=== PATIENT | female | born 1955 | race Caucasian/White ===

== ENCOUNTER 2022-05-23 01:37 | Inpatient (IN) | payer OTHER, MEDICAID ==
[2022-05-23] VITALS (18 sets, daily range): BP systolic 107–185; BP diastolic 70–95
[~2022-05-23] VITALS: Ht 167.6 cm; Wt 77.1 kg
[2022-05-23] MEDS: PIPERACILLIN/TAZOBACTAM 3.375 G in DEXTROSE 5% WATER 50 ML IV SCH ×2
[2022-05-23] MEDS ORDERED: FUROSEMIDE 100MG/10ML VIAL IVP ONE (01:45)
[2022-05-23] MEDS ORDERED: NITROGLYCERIN 0.4MG TABLET SL SL PRN (01:45)
[2022-05-23] MEDS ORDERED: ASPIRIN 81MG TABLET PO ONE (01:45)
[2022-05-23] MEDS ORDERED: CALCIUM GLUCONATE 1GM PREMIX 50 ML IV NR (02:00)
[2022-05-23] MEDS ORDERED: FUROSEMIDE 100MG/10ML VIAL IVP NR ×2 (02:00→07:30)
[2022-05-23] MEDS ORDERED: CALCIUM GLUCONATE 100MG/ML 10ML VIAL IV ONE (02:00)
[2022-05-23] MEDS ORDERED: ASPIRIN 81MG TABLET PO NR (02:00)
[2022-05-23 02:22] LABS: BASOPHILS % 0.4 % (0.0-2.0); EOSINOPHILS % 3.2 % (0.0-5.0); HEMATOCRIT. 33.4 % (36.0-48.0); HEMOGLOBIN. 10.7 g/dL (12.0-16.0); LYMPHOCYTES % 9.3 % (20.0-50.0); MEAN CORPUSCULAR HEMOGLOBIN 28.2 pg (28.0-32.0); MEAN CORPUSCULAR VOLUME 88.2 fL (81.0-99.0); MEAN PLATELET VOLUME 8.2 fl (7.4-10.4); MONOCYTES % 4.8 % (2.0-8.0); NEUTROPHILS % 82.3 % (40.0-76.0); PLATELET 299 x1000/uL (130-400); RED BLOOD CELL COUNT 3.78 mill/uL (4.2-5.4); RED CELL DISTRIBUTION WIDTH 13.6 % (11.6-14.6)
[2022-05-23 02:30] LABS: CHLORIDE 101 mEq/L (98-107)
[2022-05-23] MEDS ORDERED: HYDRALAZINE 20MG/ML VIAL IV PRN (06:45)
[2022-05-23] MEDS ORDERED: DEXTROSE 50% WATER 50ML SYRINGE IV PRN (06:45)
[2022-05-23] MEDS ORDERED: NALOXONE HCL 0.4MG/ML VIAL IV PRN (07:00)
[2022-05-23] MEDS: BLOOD SUGAR DIAGNOSTIC STRIP TEST SCH ×4 (07:30→20:53)
[2022-05-23] MEDS ORDERED: PIPERACILLIN/TAZOBACTAM 3.375 G in DEXTROSE 5% WATER 50 ML IV SCH (08:00)
[2022-05-23] MEDS ORDERED: VANCOMYCIN 1500MG in DEXTROSE 5% WATER 250ML IV NR (08:30)
[2022-05-23 08:57] LABS: BG BASE EXCESS -1.7 mmol/L (-2.0-2.0); BG DEOXYHEMOGLOBIN 2.5 % (0.0-5.0); BG FRACTION INSPIRED OXYGEN 40; BG HCO3 ACT 23.1 mmol/L (22.0-26.0); BG METHEMOGLOBIN 0.3 % (0.0-1.5); BG OXYGEN SATURATION 97.5 % (92.0-98.5); BG OXYHEMOGLOBIN 96.2 % (94.0-97.0); BG PCO2 39.1 mmHg (35.0-45.0); BG PH 7.389 (7.350-7.450); BG SAMPLE SITE RIGHT BRACHIAL; BG TOTAL HEMOGLOBIN 11.6 g/dL (12.0-18.0); BG VENT MODE NASAL CANNULA
[2022-05-23] MEDS: INSULIN LISPRO 100 UNITS/ML SUBCUT SCH ×4 (09:02→22:13)
[2022-05-23] MEDS: CLONIDINE 0.2MG TABLET PO SCH ×2 (09:03→16:23)
[2022-05-23] MEDS: PANTOPRAZOLE SODIUM 40 MG/VIAL IV SCH (09:03)
[2022-05-23] MEDS: HEPARIN 5000 UNITS/ML VIAL SUBCUT SCH ×2 (09:04→22:02)
[2022-05-23] MEDS: MORPHINE SULFATE 2 MG/ML CPJ (NOT FOR IM USE) IV PRN (11:18)
[2022-05-23 12:09] LABS: HEPATITIS B SURFACE ANTIGEN NEGATIVE
[2022-05-23] MEDS: DOCUSATE SODIUM 250MG CAPSULE PO SCH (17:18)
[2022-05-23] MEDS: ZOLPIDEM TARTRATE 5MG TABLET PO PRN ×2 (22:02→22:03)
[2022-05-24] VITALS (9 sets, daily range): BP systolic 118–141; BP diastolic 61–85
[2022-05-24 06:36] LABS: BASOPHILS % 0.5 % (0.0-2.0); EOSINOPHILS % 8.5 % (0.0-5.0); HEMATOCRIT. 28.3 % (36.0-48.0); HEMOGLOBIN. 9.4 g/dL (12.0-16.0); MEAN CORPUSCULAR HEMOGLOBIN 29.1 pg (28.0-32.0); MEAN PLATELET VOLUME 8.4 fl (7.4-10.4); MONOCYTES % 8.6 % (2.0-8.0); NEUTROPHILS % 64.4 % (40.0-76.0); PLATELET 269 x1000/uL (130-400); RED BLOOD CELL COUNT 3.22 mill/uL (4.2-5.4); RED CELL DISTRIBUTION WIDTH 13.4 % (11.6-14.6)
[2022-05-24] MEDS: BLOOD SUGAR DIAGNOSTIC STRIP TEST SCH ×4 (07:30→21:52)
[2022-05-24] MEDS: INSULIN LISPRO 100 UNITS/ML SUBCUT SCH ×4 (08:00→21:51)
[2022-05-24] MEDS: HEPARIN 5000 UNITS/ML VIAL SUBCUT SCH ×2 (08:39→21:03)
[2022-05-24] MEDS: PANTOPRAZOLE SODIUM 40 MG/VIAL IV SCH (08:39)
[2022-05-24] MEDS: DOCUSATE SODIUM 250MG CAPSULE PO SCH (08:40)
[2022-05-24] MEDS: CLONIDINE 0.2MG TABLET PO SCH ×3 (08:41→17:00)
[2022-05-24] MEDS: PIPERACILLIN/TAZOBACTAM 3.375 G in DEXTROSE 5% WATER 50 ML IV SCH ×2 (13:13→21:02)
[2022-05-24] MEDS ORDERED: THROAT LOZENGES-BENZOCAINE/MENTH/CETYLPYRD CL LOZENGES MM PRN (14:00)
[2022-05-24] MEDS ORDERED: GUAIFENESIN-DM 200MG-20MG/10ML UDC PO PRN (15:30)
[2022-05-25] VITALS (16 sets, daily range): BP systolic 140–174; BP diastolic 60–96
[2022-05-25] MEDS: INSULIN LISPRO 100 UNITS/ML SUBCUT SCH ×3 (07:44→17:39)
[2022-05-25] MEDS: BLOOD SUGAR DIAGNOSTIC STRIP TEST SCH ×3 (07:44→17:35)
[2022-05-25] MEDS: CLONIDINE 0.2MG TABLET PO SCH ×2 (08:22→17:00)
[2022-05-25] MEDS: PIPERACILLIN/TAZOBACTAM 3.375 G in DEXTROSE 5% WATER 50 ML IV SCH (08:22)
[2022-05-25] MEDS: DOCUSATE SODIUM 250MG CAPSULE PO SCH (08:22)
[2022-05-25] MEDS: HEPARIN 5000 UNITS/ML VIAL SUBCUT SCH (08:22)
[2022-05-25] MEDS ORDERED: FAMOTIDINE 20MG/2ML VIAL IV SCH (09:00)
[2022-05-25] MEDS ORDERED: LEVO250T74 MT (10:09)
[2022-05-25] MEDS: MORPHINE SULFATE 2 MG/ML CPJ (NOT FOR IM USE) IV PRN (10:19)
[2022-05-25] MEDS ORDERED: LACTULOSE 20G/30ML UDC PO SCH (11:30)
[2022-05-25] MEDS ORDERED: EPOETIN ALFA-EPBX 4,000 UNIT/ML VIAL SUBCUT SCH (21:00)
[2022-05-25] MEDS ORDERED: VANCOMYCIN 750MG PREMIX 150 ML IV NR (21:00)
== END 2022-05-25 19:30 | disposition home or self-care (01) | DRG 193 ==
LOC: ER 01:37 → EDBEDREQ 03:48 → ENRESERV 04:14 → 5EST 05:54
PROVIDERS: ADMIT Internal Medicine; ATTEND Internal Medicine
PROC: 5A09357 Assistance with Respiratory Ventilation, Less than 24 Consecutive Hours, Continuous Positive Airway Pressure (ICD-10-PCS; principal; 2022-05-23)
PROC: 5A1D70Z Performance of Urinary Filtration, Intermittent, Less than 6 Hours Per Day (ICD-10-PCS; 2022-05-23)
PROC: 5A1D70Z Performance of Urinary Filtration, Intermittent, Less than 6 Hours Per Day (ICD-10-PCS; 2022-05-25)
DX: J18.9 Pneumonia, unspecified organism (principal); J96.00 Acute respiratory failure, unspecified whether with hypoxia or hypercapnia; N18.6 End stage renal disease; I13.2 Hypertensive heart and chronic kidney disease with heart failure and with stage 5 chronic kidney disease, or end stage renal disease; E44.0 Moderate protein-calorie malnutrition; E87.1 Hypo-osmolality and hyponatremia; E11.22 Type 2 diabetes mellitus with diabetic chronic kidney disease; I16.0 Hypertensive urgency; I50.9 Heart failure, unspecified; D63.1 Anemia in chronic kidney disease; Z99.2 Dependence on renal dialysis; Z68.27 Body mass index [BMI] 27.0-27.9, adult
CPT/HCPCS: 36415; 36600; 71045; 80048; 80053; 80202; 82375; 82805; 82962; 83036; 83735; 83880; 84484; 85025; 86705; 86709; 86803; 87340; 87426; 87804; 90935; 93005; 94660; 99285; C9113; C9803; J0610; J0885; J1644; J1815; J1940; J2270; J2543; J3370; J3490; J7060

== ENCOUNTER 2022-06-18 16:53 | Inpatient (IN) | payer OTHER, MEDICAID ==
[~2022-06-18] VITALS: Ht 165.1 cm; Wt 76.4 kg
[~2022-06-18 16:53] MED LIST: LEVO250T74 MT
[2022-06-18 18:01] LABS: BASOPHILS % 0.8 % (0.0-2.0); EOSINOPHILS % 2.4 % (0.0-5.0); HEMATOCRIT. 25.9 % (36.0-48.0); HEMOGLOBIN. 8.7 g/dL (12.0-16.0); LYMPHOCYTES % 10.1 % (20.0-50.0); MEAN CORPUSCULAR HEMOGLOBIN 28.3 pg (28.0-32.0); MEAN CORPUSCULAR VOLUME 84.7 fL (81.0-99.0); MONOCYTES % 5.1 % (2.0-8.0); NEUTROPHILS % 81.6 % (40.0-76.0); PLATELET 234 x1000/uL (130-400); RED BLOOD CELL COUNT 3.06 mill/uL (4.2-5.4); RED CELL DISTRIBUTION WIDTH 13.9 % (11.6-14.6)
[2022-06-18 18:14] LABS: PROTHROMBIN TIME 11.1 sec (9.6-11.0)
[2022-06-18 18:18] LABS: CHLORIDE 96 mEq/L (98-107)
[2022-06-18] MEDS ORDERED: MAGNESIUM 2 G PREMIX 50 ML IV ONE (18:45)
[2022-06-19 00:24] LABS: CLARITY URINE CLEAR (CLEAR); COLOR URINE YELLOW (YELLOW); KETONES URINE NEGATIVE (NEGATIVE); LEUKOCYTE ESTERASE URINE 1+ (NEGATIVE); NITRITE URINE NEGATIVE (NEGATIVE); OCCULT BLOOD URINE NEGATIVE (NEGATIVE); PH URINE 8.5 (4.5-8.0); PROTEIN URINE 4+ (NEGATIVE); SPECIFIC GRAVITY URINE 1.015 (1.005-1.030); UROBILINOGEN URINE 0.2 E.U./dL (0.2-1.0)
[2022-06-19] MEDS ORDERED: CLONIDINE 0.2MG TABLET PO NR (04:00)
[2022-06-19] MEDS ORDERED: IPRATROPIUM/ALBUTEROL 0.5-3(2.5)MG/3ML NEB NEB PRN (10:30)
[2022-06-19] MEDS ORDERED: CLONIDINE 0.1MG TABLET PO PRN (10:30)
[2022-06-19] MEDS ORDERED: GUAIFENESIN 200MG/10ML SUGAR FREE UDC PO PRN (10:30)
[2022-06-19] MEDS ORDERED: DIPHENHYDRAMINE 50MG/ML VIAL IV PRN (10:30)
[2022-06-19] MEDS ORDERED: HYDROCODONE/ACETAMINOPHEN 5/325MG TABLET PO PRN (10:30)
[2022-06-19] MEDS ORDERED: ACETAMINOPHEN 650MG SUPP PR PRN (10:30)
[2022-06-19] MEDS ORDERED: MAGNESIUM/ALUMINUM HYDROXIDE/SIMETHICONE 30ML UDC PO PRN (10:30)
[2022-06-19] MEDS ORDERED: NALOXONE HCL 0.4MG/ML VIAL IV PRN (10:45)
[2022-06-19] MEDS ORDERED: IPRATROPIUM BROMIDE (0.02%) 0.5MG/2.5ML NEB HHN PRN (10:45)
[2022-06-19] MEDS ORDERED: ALBUTEROL (0.083%) 2.5MG/3ML NEB HHN PRN (10:45)
[2022-06-19 13:44] LABS: *AMPHETAMINES SCREEN URINE NEGATIVE (NEGATIVE); *BARBITURATES SCREEN URINE NEGATIVE (NEGATIVE); *BENZODIAZEPINES SCREEN URINE NEGATIVE (NEGATIVE); *COCAINE SCREEN URINE NEGATIVE (NEGATIVE); CANNABINOID URINE SCREEN NEGATIVE (NEGATIVE); METHADONE URINE SCREEN NEGATIVE (NEGATIVE); OPIATES URINE SCREEN PRESUMTIVE POSITIVE (NEGATIVE); PHENCYCLIDINE URINE SCREEN NEGATIVE (NEGATIVE)
[2022-06-19] MEDS ORDERED: DEXTROSE 50% WATER 50ML SYRINGE IV PRN (15:15)
[2022-06-19] MEDS ORDERED: HYDRALAZINE HCL 25MG TABLET PO NR (15:45)
[2022-06-19 16:32] LABS: BASOPHILS % 0.8 % (0.0-2.0); EOSINOPHILS % 1.7 % (0.0-5.0); HEMATOCRIT. 28.5 % (36.0-48.0); HEMOGLOBIN. 9.6 g/dL (12.0-16.0); MEAN CORPUSCULAR HEMOGLOBIN 28.4 pg (28.0-32.0); MEAN CORPUSCULAR VOLUME 84.7 fL (81.0-99.0); MEAN PLATELET VOLUME 8.5 fl (7.4-10.4); MONOCYTES % 6.1 % (2.0-8.0); NEUTROPHILS % 73.4 % (40.0-76.0); PLATELET 258 x1000/uL (130-400); RED BLOOD CELL COUNT 3.37 mill/uL (4.2-5.4); RED CELL DISTRIBUTION WIDTH 14.1 % (11.6-14.6)
[2022-06-19 16:33] LABS: CHLORIDE 98 mEq/L (98-107)
[2022-06-19] MEDS: BLOOD SUGAR DIAGNOSTIC STRIP TEST SCH ×2 (16:39→21:28)
[2022-06-19 16:42] LABS: CREATINE KINASE 60 IU/L (26-192); CREATINE KINASE MB FRACTION 1.7 ng/mL (0.5-3.6)
[2022-06-19 17:08] LABS: HEPATITIS B SURFACE ANTIGEN NEGATIVE
[2022-06-19] MEDS: INSULIN LISPRO 100 UNITS/ML SUBCUT SCH ×2 (17:08→21:28)
[2022-06-19 20:00] VITALS: BP 162/88
[2022-06-19] MEDS: FAMOTIDINE 20MG TABLET PO SCH (21:21)
[2022-06-19] MEDS: ONDANSETRON HCL 4MG/2ML INJ IV PRN (21:29)
[2022-06-19 21:41] VITALS: BP 162/88
[2022-06-19] MEDS: HYDRALAZINE HCL 25MG TABLET PO SCH (22:00)
[2022-06-19] MEDS: LORAZEPAM 0.5MG TABLET PO PRN (22:30)
[2022-06-19 23:15] LABS: CREATINE KINASE MB FRACTION 1.7 ng/mL (0.5-3.6)
[2022-06-20] VITALS (13 sets, daily range): BP systolic 118–165; BP diastolic 63–94
[2022-06-20 06:05] LABS: BASOPHILS % 0.7 % (0.0-2.0); HEMATOCRIT. 23.8 % (36.0-48.0); HEMOGLOBIN. 8.1 g/dL (12.0-16.0); LYMPHOCYTES % 18.7 % (20.0-50.0); MEAN PLATELET VOLUME 8.2 fl (7.4-10.4); MONOCYTES % 8.6 % (2.0-8.0); PLATELET 224 x1000/uL (130-400); RED BLOOD CELL COUNT 2.81 mill/uL (4.2-5.4); RED CELL DISTRIBUTION WIDTH 13.9 % (11.6-14.6)
[2022-06-20 06:26] LABS: CHLORIDE 101 mEq/L (98-107)
[2022-06-20] MEDS: BLOOD SUGAR DIAGNOSTIC STRIP TEST SCH ×4 (06:46→21:00)
[2022-06-20] MEDS: INSULIN LISPRO 100 UNITS/ML SUBCUT SCH ×4 (06:46→21:00)
[2022-06-20] MEDS: HYDRALAZINE HCL 25MG TABLET PO SCH ×3 (06:46→22:32)
[2022-06-20] MEDS ORDERED: REGADENOSON 0.4 MG/5 ML IV NR (13:00)
[2022-06-20] MEDS: ACETAMINOPHEN 325MG TABLET PO PRN (13:34)
[2022-06-20] MEDS: ONDANSETRON HCL 4MG/2ML INJ IV PRN (16:28)
[2022-06-20] MEDS: DOCUSATE SODIUM 100MG CAPSULE PO PRN (18:12)
[2022-06-20] MEDS ORDERED: EPOETIN ALFA-EPBX 4,000 UNIT/ML VIAL SUBCUT SCH (21:00)
[2022-06-20] MEDS: FAMOTIDINE 20MG TABLET PO SCH (22:32)
[2022-06-21] VITALS: BP 168/92
[2022-06-21] MEDS: LORAZEPAM 0.5MG TABLET PO PRN (00:36)
[2022-06-21 04:00] VITALS: BP 168/89
[2022-06-21] MEDS: HYDRALAZINE HCL 25MG TABLET PO SCH ×3 (06:00→21:08)
[2022-06-21 06:46] LABS: BASOPHILS % 0.6 % (0.0-2.0); EOSINOPHILS % 6.1 % (0.0-5.0); HEMATOCRIT. 25.4 % (36.0-48.0); HEMOGLOBIN. 8.5 g/dL (12.0-16.0); LYMPHOCYTES % 17.1 % (20.0-50.0); MEAN CORPUSCULAR HEMOGLOBIN 28.6 pg (28.0-32.0); MEAN CORPUSCULAR VOLUME 85.5 fL (81.0-99.0); MEAN PLATELET VOLUME 8.4 fl (7.4-10.4); MONOCYTES % 7.5 % (2.0-8.0); NEUTROPHILS % 68.7 % (40.0-76.0); PLATELET 233 x1000/uL (130-400); RED BLOOD CELL COUNT 2.97 mill/uL (4.2-5.4)
[2022-06-21] MEDS: BLOOD SUGAR DIAGNOSTIC STRIP TEST SCH ×4 (07:12→21:11)
[2022-06-21] MEDS: INSULIN LISPRO 100 UNITS/ML SUBCUT SCH ×4 (07:20→21:00)
[2022-06-21 08:00] VITALS: BP 167/97
[2022-06-21] MEDS ORDERED: REGADENOSON 0.4 MG/5 ML IV ONE (10:37)
[2022-06-21 12:00] VITALS: BP 154/94
[2022-06-21] MEDS: ACETAMINOPHEN 325MG TABLET PO PRN (12:33)
[2022-06-21] MEDS ORDERED: CEFTRIAXONE 1 G PREMIX 50 ML IV SCH (14:30)
[2022-06-21 16:00] VITALS: BP 166/85
[2022-06-21] MEDS: CEFTRIAXONE 1,000 MG in DEXTROSE 5% WATER 50 ML IV SCH (17:15)
[2022-06-21 20:43] VITALS: BP 165/92
[2022-06-21] MEDS ORDERED: ZOLPIDEM TARTRATE 5MG TABLET PO PRN (20:45)
[2022-06-21] MEDS: DOCUSATE SODIUM 100MG CAPSULE PO PRN (21:07)
[2022-06-21] MEDS: FAMOTIDINE 20MG TABLET PO SCH (21:08)
[2022-06-22] VITALS (12 sets, daily range): BP systolic 122–179; BP diastolic 58–108
[2022-06-22 05:43] LABS: BASOPHILS % 0.5 % (0.0-2.0); EOSINOPHILS % 7.2 % (0.0-5.0); HEMATOCRIT. 26.7 % (36.0-48.0); LYMPHOCYTES % 15.9 % (20.0-50.0); MEAN CORPUSCULAR HEMOGLOBIN 28.3 pg (28.0-32.0); MEAN PLATELET VOLUME 7.8 fl (7.4-10.4); MONOCYTES % 8.2 % (2.0-8.0); NEUTROPHILS % 68.2 % (40.0-76.0); PLATELET 261 x1000/uL (130-400); RED BLOOD CELL COUNT 3.18 mill/uL (4.2-5.4)
[2022-06-22] MEDS: BLOOD SUGAR DIAGNOSTIC STRIP TEST SCH ×3 (06:12→18:20)
[2022-06-22] MEDS: HYDRALAZINE HCL 25MG TABLET PO SCH ×2 (06:12→15:43)
[2022-06-22] MEDS: INSULIN LISPRO 100 UNITS/ML SUBCUT SCH ×3 (07:20→17:20)
[2022-06-22] MEDS: ONDANSETRON HCL 4MG/2ML INJ IV PRN (08:49)
[2022-06-22] MEDS: DOCUSATE SODIUM 100MG CAPSULE PO PRN (09:00)
[2022-06-22] MEDS ORDERED: MECLIZINE 12.5MG TABLET PO PRN (09:30)
[2022-06-22] MEDS ORDERED: LACTULOSE 20G/30ML UDC PO NR (14:00)
[2022-06-22] MEDS: CEFTRIAXONE 1,000 MG in DEXTROSE 5% WATER 50 ML IV SCH (15:54)
[2022-06-22] MEDS: ACETAMINOPHEN 325MG TABLET PO PRN (16:27)
== END 2022-06-22 19:01 | disposition home health service (06) | DRG 73 ==
LOC: ER 17:12 → MICUSO 20:54 → 3WST 06-19 17:56
PROVIDERS: ADMIT Internal Medicine; ATTEND Internal Medicine
PROC: 5A1D70Z Performance of Urinary Filtration, Intermittent, Less than 6 Hours Per Day (ICD-10-PCS; principal; 2022-06-20)
PROC: 5A1D70Z Performance of Urinary Filtration, Intermittent, Less than 6 Hours Per Day (ICD-10-PCS; 2022-06-22)
DX: G90.8 Other disorders of autonomic nervous system (principal); N18.6 End stage renal disease; I13.2 Hypertensive heart and chronic kidney disease with heart failure and with stage 5 chronic kidney disease, or end stage renal disease; I50.9 Heart failure, unspecified; E11.22 Type 2 diabetes mellitus with diabetic chronic kidney disease; D63.1 Anemia in chronic kidney disease; F17.200 Nicotine dependence, unspecified, uncomplicated; Z99.2 Dependence on renal dialysis; Z90.49 Acquired absence of other specified parts of digestive tract
CPT/HCPCS: 36415; 71045; 78452; 80048; 80053; 80061; 80305; 81003; 82550; 82553; 82962; 83036; 83735; 83880; 84443; 84484; 85025; 86705; 86709; 86803; 86850; 86900; 87077; 87186; 87340; 90935; 93005; 93017; 93306; 93880; 93970; 97162; 97530; 99285; A9500; J0696; J0885; J1815; J2405; J2785; J3475; J7060; J8597